=== PATIENT | male | born 1970 | race Caucasian/White ===

== ENCOUNTER 2018-05-11 15:03 | Emergency (ER) | payer SELFPAY ==
[2018-05-11 15:21] VITALS: BP 154/78; PULSE 74; TEMP 98.2; BMI 37.9
--- NOTE | 2018-05-11 15:26 | PDOC ---
Rapid Medical Evaluation Time Seen by Provider: 05/11/18 15:17 Medical Evaluation: Allergies Allergy/AdvReac Type Severity Reaction Status Date / Time No Known Allergies Allergy Verified 05/11/18 15:17 05/11/18 15:19 have performed a brief in-person evaluation of this patient. 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
[2018-05-11] MEDS ORDERED: TRIAMCINOLONE ACET 40MG/1ML VIAL IM ONE (15:31)
--- NOTE | 2018-05-11 15:37 | PDOC ---
History of Present Illness - General Chief Complaint: Poison [place],Poison Ko Exposure Stated Complaint: POISON KO Time Seen by Provider: 05/11/18 15:17 History Source: Patient Exam Limitations: No Limitations - History of Present Illness Initial Comments: 05/11/18 15:33 c/o poison ko on both arms for 3 days getting worse. Timing/Duration: reports: getting worse Severity: Yes: moderate Past History - Past Medical History Allergies/Adverse Reactions: Allergies Allergy/AdvReac Type Severity Reaction Status Date / Time No Known Allergies Allergy Verified 05/11/18 15:17 Home Medications: Ambulatory Orders Cetirizine HCl 10 mg PO DAILY #21 tablet 05/11/18 Methylprednisolone [Medrol Dose Elvis] 4 mg PO ASDIR #21 tablet 05/11/18 COPD: No Other medical history: DENIES. - Suicide/Smoking/Psychosocial Hx Smoking History: Never smoked *Physical Exam - Vital Signs Last Vital Signs Temp Pulse Resp BP Pulse Ox 98.2 F 74 19 154/78 98 05/11/18 15:17 05/11/18 15:17 05/11/18 15:17 05/11/18 15:17 05/11/18 15:17 - Physical Exam General Appearance: Yes: Nourished, Appropriately Dressed HEENT: positive: EOMI, HENRY Extremity: positive: Normal Capillary Refill, Normal Inspection, Normal Range of Motion Integumentary: positive: Rash Neurologic: positive: Fully Oriented, Alert, Normal Mood/Affect, Normal Response , Motor Strength 5/5 Medical Decision Making - Medical Decision Making 05/11/18 15:33 cc: poison ko wheeping no facial involvement no groin involvement bilateral arms from axila down to wrists with wheeping red rash *DC/Admit/Observation/Transfer Diagnosis at time of Disposition: Poison ko dermatitis - Discharge Dispostion Disposition: HOME Condition at time of disposition: Good - Prescriptions Prescriptions: Cetirizine HCl 10 mg PO DAILY #21 tablet Methylprednisolone [Medrol Dose Elvis] 4 mg PO ASDIR #21 tablet - Referrals - Patient Instructions Printed Discharge Instructions: DI for Poison Ko Allergy Additional Instructions: start the medrol dose pack on Monday take the cetrizine daily 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 and apply it to the rash as directed always wear long sleeves to protect arms when outside in wooded or gardened area follow with your doctor for follow up next week Return to ER for any worsening symptoms Comience el paquete de dosis de medrol el lunes tome la cetrizine diariamente comience hoy agua fra para baarse skip un poco de Caladryl o locin de calamina y aplicarlo a la erupcin [place] se indica Siempre use mangas largas para proteger los brazos cuando est afuera en el gonzalez boscosa o ajardinada siga con babb mdico para un seguimiento la prxima semana Regrese a la jolene de emergencias por cualquier sntoma que empeore Print Language: FILIPINO - Post Discharge Activity
[2018-05-11] MEDS ORDERED: TRIAMCINOLONE ACET 40MG/1ML VIAL ONE (15:38)
== END 2018-05-11 16:23 | disposition home or self-care (01) ==
LOC: JERFT 15:03
DX: L23.7 Allergic contact dermatitis due to plants, except food (principal)
CPT/HCPCS: 99281-25